=== PATIENT | female | born 1985 | race Hispanic/Latino ===

== ENCOUNTER 2016-06-05 14:50 | Outpatient (CLI) | payer BC ==
[2016-06-10 18:48] LABS: HPV High Risk Type 16 Negative (Negative); HPV High Risk Type 18 POSITIVE (Negative); HPV Other High Risk Types Negative (Negative)
== END 2016-06-05 14:51 | disposition home or self-care (01) ==
LOC: MADLABBHPM 14:50
PROVIDERS: ATTEND Family Medicine
DX: Z01.419 Encounter for gynecological examination (general) (routine) without abnormal findings (principal)
CPT/HCPCS: 36415; 87624; 88142; G0123

== ENCOUNTER 2016-06-12 11:51 | Outpatient (CLI) | payer BC ==
[2016-06-13 17:26] LABS: Chlamydia by PCR Not Detected (NotDetected); GC by PCR Not Detected (NotDetected)
== END 2016-06-12 11:52 | disposition home or self-care (01) ==
LOC: MADLABBHPM 11:51
PROVIDERS: ATTEND Family Medicine
DX: R89.6 Abnormal cytological findings in specimens from other organs, systems and tissues (principal)
CPT/HCPCS: 36415; 87480; 87491; 87510; 87591; 87660